=== PATIENT | male | born 1950 | race Caucasian/White ===

== ENCOUNTER → 2022-07-17 | Outpatient (CLI) | payer OTHER | LOC: LAB 07:06 → LAB SHORT 07:06 | DX: R21 Rash and other nonspecific skin eruption (principal) | CPT/HCPCS: 88312 ==

== ENCOUNTER 2023-01-05 12:29 | Day surgery (SDC) | payer OTHER ==
[~2023-01-05] VITALS: Ht 172.7 cm; Wt 90.1 kg
[2023-01-05] MEDS ORDERED: METO25ER (12:43)
[2023-01-05] MEDS ORDERED: AMLODIPINE-OLM1 EAC4 (12:43)
[2023-01-05] MEDS ORDERED: ASPI81CH (12:44)
[2023-01-05 14:44] VITALS: BP 111/62
== END 2023-01-05 14:46 | disposition home or self-care (01) ==
LOC: ORSCSDS 12:29
PROVIDERS: Internal Medicine Gastroenterology
PROC: 0DBP8ZX Excision of Rectum, Via Natural or Artificial Opening Endoscopic, Diagnostic (ICD-10-PCS; principal; 2023-01-05 13:45)
DX: Z12.11 Encounter for screening for malignant neoplasm of colon (principal); K62.1 Rectal polyp; K57.30 Diverticulosis of large intestine without perforation or abscess without bleeding; K64.8 Other hemorrhoids; Z87.891 Personal history of nicotine dependence; Z79.82 Long term (current) use of aspirin; Z79.899 Other long term (current) drug therapy
CPT/HCPCS: 88305; J2704; J7120